=== PATIENT | male | born 1960 | race Caucasian/White ===

== ENCOUNTER 2021-05-20 22:22 | Emergency (ER) | payer OTHER ==
[~2021-05-20] VITALS: Ht 167.6 cm; Wt 112.0 kg
[2021-05-20] MEDS ORDERED: KETOROLAC 60MG/2ML VIAL IM STA (22:57)
[2021-05-20 23:36] LABS: CLARITY URINE CLEAR (CLEAR); COLOR URINE YELLOW (YELLOW); KETONES URINE NEGATIVE (NEGATIVE); LEUKOCYTE ESTERASE URINE NEGATIVE (NEGATIVE); NITRITE URINE NEGATIVE (NEGATIVE); OCCULT BLOOD URINE 2+ (NEGATIVE); PROTEIN URINE TRACE (NEGATIVE); SPECIFIC GRAVITY URINE 1.023 (1.005-1.030); UROBILINOGEN URINE 0.2 E.U./dL (0.2-1.0)
[2021-05-21] MEDS ORDERED: IBUP-2029 MT (00:24)
[2021-05-21 00:32] VITALS: BP 137/72
== END 2021-05-21 00:33 | disposition home or self-care (01) ==
LOC: ER 22:22
DX: R10.12 Left upper quadrant pain (principal); R31.9 Hematuria, unspecified; I10 Essential (primary) hypertension; J45.909 Unspecified asthma, uncomplicated
CPT/HCPCS: 74018; 81003; 96372; 99284; J1885